=== PATIENT | male | born 1940 | race Caucasian/White ===

== ENCOUNTER 2016-10-11 14:25 | Inpatient (IN) | payer OTHER ==
[~2016-10-11] VITALS: Ht 165.1 cm; Wt 76.6 kg
--- NOTE | 2016-10-11 18:50 | DIAGNOSTIC IMAGING REPORT ---
PROCEDURE: US KIDNEY/RENAL COMPLETE INDICATION: Renal failure. History of prostate carcinoma. TECHNIQUE: Transabdominal scans of the kidneys with calculation of resistive indices. Prevoid and postvoid bladder volumes were obtained. COMPARISON: None. FINDINGS: RIGHT: There is moderate right hydronephrosis and hydroureter to the level of the ureteral vesicle junction. There is mild generalized enlargement right kidney (15.4 x 6.8 cm), although cortical thickness appears normal (1.4 cm). Right renal resistive indices are within normal limits (upper pole 0.72, mid pole 0.70, inferior pole 0.74). LEFT: There is moderate left hydronephrosis and hydroureter to the level of the ureteral vesicle junction. Left kidney is of normal size (11.2 x 5.7 x 3.1 cm) with mild generalized cortical atrophic changes (0.8 cm). BLADDER: There is moderate to marked distention of the urinary bladder (440 ml). There is moderate generalized mucosal thickening of the bladder with focal mucosal thickening of the posterior lower bladder. The patient was unable to void. Prostate is not visualized (suggest prior surgery or atrophic changes). IMPRESSION: 1. Moderate bilateral hydronephrosis and hydroureter to the level of the distal ureters. 2. Moderate to marked distention of the urinary bladder (440 ml) with moderate generalized mucosal thickening, and localized mucosal thickening of the posterior lower bladder. 3. 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 Cystoscopic correlation is recommended. 4. Findings discussed with Dr. Néstor Corral.
--- NOTE | 2016-10-11 21:18 | ED ORDER SUMMARY ---
..... Patient: YARELI OLIVARES OrderSheet [facility] VisitID: [id number] [place] [address] 76y, M Registration Date/Time: 10/11/2016 ORDER SHEET Weight: 74.3 kg (stated) Allergies: No Known Drug Allergy GENERAL ORDERS: CBC w Diff Urgent (15:14 10/11/2016 Nisha Mcdaniels) (Ack 15:16 NHouse ER Tech1) (15:53 NHouse ER Tech1) CMP Urgent (15:14 10/11/2016 Nisha Mcdaniels) (Ack 15:16 NHouse ER Tech1) (15:53 NHouse ER Tech1) UA-Culture if indicated Urgent (15:14 10/11/2016 Nisha Mcdaniels) (Ack 15:16 NHouse ER Tech1) (18:47 EHassan R.N.) PT with INR Urgent (15:14 10/11/2016 Nisha Mcdaniels) (Ack 15:16 NHouse ER Tech1) (15:53 NHouse ER Tech1) Pulse oximeter (15:14 10/11/2016 Nisha Mcdaniels) (16:19 EHassan R.N.) EKG - ER Stat (15:15 10/11/2016 Nisha Mcdaniels) (15:15 LNations ER Tech1) Vitals - Orthostatic (15:15 10/11/2016 Nisha Mcdaniels) (16:43 EHassan R.N.) Bladder Scan (16:53 10/11/2016 Nisha Mcdaniels) (17:08 LNations ER Tech1) US Kidney/Renal Complete (No) Urgent (16:54 10/11/2016 Nisha Mcdaniels) (Ack 17:20 NHouse ER Tech1) (17:43 NHouse ER Tech1) Torres Catheter (placed at 18:30) (18:43 10/11/2016 Nisha Mcdaniels) (18:46 EHassan R.N.) - (consult urology) (18:45 10/11/2016 Nisha Mcdaniels) (Ack 18:57 NHouse ER Tech1) (22:22 NHouse ER Tech1) Rapid Influenza Screen (Nasal Pharyngeal) (mucus) Urgent (19:46 10/11/2016 Nisha Mcdaniels) (Ack 19:55 NHouse ER Tech1) (20:27 HSoule) MEDICATION ORDERS: IV FLUIDS: IV Saline Lock (15:14 10/11/2016 Nisha Mcdaniels) (16:18 SStone R.N.) IV NS : initial bolus 500 mL (1000 mL/hr), then none - for X1 (NOW) (16:13 10/11/2016 Nisha Mcdaniels) (16:17 SStone R.N.) Ceftriaxone IV 1 gm/50mL (NOW) (21:06 10/11/2016 Nisha Mcdaniels) (Ack 21:08 HSoule) (21:18 HSoule) ORDER SHEET NOTES: [Electronically signed by Danielle Patino (00:34 10/12/2016)] [Electronically signed by Néstor Corral Dr. (22:32 10/14/2016)] [Electronically locked/signed by Danielle Patino (00:34 10/12/2016)]
--- NOTE | 2016-10-11 21:18 | ED CLINICAL REPORT ---
Clinical Report - Physicians/Mid Levels [facility] [address] [place] [address] 10/11/2016 14:26 Patient: YARELI OLIVARES Arrived- By private vehicle. Historian- patient. HISTORY OF PRESENT ILLNESS Chief Complaint: fatigue. This started past several days and is still present and worsening. It was gradual in onset and has been waxing/waning but is not gone now. At its maximum, severity described as moderate. When seen in the E.D., severity described as moderate. Modifying factors. Not worsened by anything. Not relieved by anything. No headache, visual disturbance, fatigue, muscle aches or weakness. Denies sleep problem. He has had decreased urine output. (reports patient not being able to urinate for the past few days.). Similar symptoms previously: None. Recent medical care: The patient was seen recently by a health care provider. ( Patient told to go the the emergency department by doctor for abnormal labs. patient does not know what labs were abnormal.). REVIEW OF SYSTEMS No fever, sore throat, sinus drainage, abdominal pain or nausea. No diarrhea or headache. All systems otherwise negative, except as recorded above. PAST HISTORY See nurses notes. Medications: Aspirin 81 mg daily. Atorvastatin 40 mg q.h.s.. Chlorthalidone 25 mg q.am.. Carvedilol 25 mg bid. Amlodipine 10 mg daily. Allergies: No Known Drug Allergy. SOCIAL HISTORY Former smoker. No alcohol use or drug use. No recent travel. Is a local resident. ADDITIONAL NOTES The nursing notes have been reviewed. PHYSICAL EXAM Vital Signs: 10/11/2016 14:41 BP: 166/66. HR: 117. RR: 20. O2 saturation: 100%. Temp: 98.4 F. Pain level now: 0/10. Blood pressure normal. Oxygen saturation normal. Appearance: Alert. No acute distress. Eyes: Pupils equal, round and reactive to light. Eyes normal inspection. ENT: Ears normal. Nose normal. Pharynx normal. Neck: Normal inspection. Neck supple. CVS: Tachycardia. Heart sounds normal. Pulses normal. Rhythm normal. Respiratory: No respiratory distress. Breath sounds normal. Chest nontender. Abdomen: No visible injury. Soft and nontender. Bowel sounds normal. No organomegaly. No mass. Femoral pulses equal. Back: Normal inspection. Skin: Skin warm and dry. Normal skin color. No rash. Normal skin turgor. Extremities: Extremities exhibit normal ROM. No lower extremity edema. Neuro: Oriented X 3. No motor deficit. No sensory deficit. LABS, X-RAYS, AND EKG Laboratory Tests: UA-Culture if indicated: (SHANTANU: 10/11/2016 18:30) ( WagRcvd 10/11/2016 19:06) Final results Test Result Flag Units (Reference) URINE COLOR YELLOW URINE APPEARANCE CLOUDY URINE GLUCOSE NEGATIVE (NEGATIVE) URINE BILIRUBIN NEGATIVE (NEGATIVE) URINE KETONE NEGATIVE (NEGATIVE) URINE SPECIFIC GRAVITY 1.010 (1.010-1.030) URINE PH 6.0 (5.0-8.0) URINE PROTEIN 1+ (NEGATIVE) URINE UROBILINOGEN 0.2 EU/dL (0.2-1.0) URINE NITRITE NEGATIVE (NEGATIVE) URINE BLOOD 2+ (NEGATIVE) URINE LEUK ESTERASE POSITIVE (NEGATIVE) URINE RBC NONE SEEN rbc/hpf (0-1) URINE WBC 75-100 wbc/hpf (0-1) URINE EPITHELIAL CELLS RARE EPI/hpf (0-5) URINE BACTERIA MANY (4+) (NONE SEEN) URINE COMMENT CULTURE INDICATED URINE CULTURES ARE SET-UP BASED ON THE FOLLOWING CRITERIA:POSITIVE NITRITEPOSITIVE LEUKOCYTE ESTERASEGREATER THAN 10 WHITE BLOOD CELLSMODERATE (2+) OR GREATER BACTERIA CBC w Diff: (SHANTANU: 10/11/2016 13:05) ( [facility] 10/11/2016 15:23) Final results Test Result Flag Units (Reference) WHITE BLOOD COUNT 17.5 H K/uL (4.5-11.5) RED BLOOD COUNT 3.11 L M/uL (4.50-5.90) HEMOGLOBIN 8.8 L gm/dL (13.5-17.5) HEMATOCRIT 26.8 L % (41.0-53.0) MEAN CELL VOLUME 86 fL (80-100) MEAN CORPUSCULAR HGB 29 pg (26-34) MEAN CORPUSCULAR HGB CONC 33 g/dL (31-37) RED CELL DISTRIBUTION WIDTH 17.8 H % (11.6-14.8) PLATELET COUNT 484 H K/uL (150-400) NEUTROPHIL % 79.8 H % (50-75) LYMPH % 9.0 L % (25-40) MONO % 9.9 % (3-14) EOSINOPHIL % 1.0 % (0-4) BASOPHIL % 0.3 % (0-2) PT with INR: (SHANTANU: 10/11/2016 13:05) ( WagRcvd 10/11/2016 15:34) Final results Test Result Flag Units (Reference) INR 1.1 (0.8-1.2) Low Intensity Therapy: INR 1.5-2.0 PT range 18.5-23.1Mod.Intensity Therapy: INR 2.0-3.0 PT range 23.1-31.5High Intensity Therapy: INR 2.5-3.5 PT range 27.4-35.5High Intensity Therapy 2: INR 3.0-4.0 PT range 31.5-39.3 CMP: (SHANTANU: 10/11/2016 13:05) ( MsgRcvd 10/11/2016 16:06) Final results Test Result Flag Units (Reference) GLUCOSE 105 mg/dL (70-110) BUN 81 *H mg/dL (7-18) CRITICAL RESULTS CALLEDCalled to ESTEVAN 10/11/16 1605Were 2 patient identifiers used? YWas the result read back? Y CREATININE 4.2 H mg/dL (0.6-1.3) Estimated GFR 14.78 mL/min Estimated GFR- 17.91 mL/min Note: Persistent reduction over 3 months in eGFR<60 mL/min/1.73 m2 defines CKD. Patients with eGFR values>=60 mL/min/1.73 m2 may also have CKD if evidence ofpersistent proteinuria. Additional information may be foundat [email or web address].org. SODIUM 137 mmol/L (136-145) POTASSIUM 5.0 mmol/L (3.5-5.1) CHLORIDE 101 mmol/L (98-107) CARBON DIOXIDE 20 L mmol/L (21-32) CALCIUM 9.5 mg/dL (8.5-10.1) TOTAL PROTEIN 8.2 g/dL (6.4-8.2) ALBUMIN 2.5 L g/dL (3.3-5.0) BILIRUBIN, TOTAL 0.3 mg/dL (0.0-1.0) ALKALINE PHOSPHATASE 200 H U/L (46-116) AST (SGOT) 24 U/L (15-37) ALT (SGPT) 47 U/L (12-78) Rapid Influenza Screen: (SHANTANU: 10/11/2016 20:00) ( MsgRcvd 10/11/2016 20:22) Final results SPECIMEN DESCRIPTION: MUCUS Test Result Flag Units (Reference) RAPID INFLUENZA SCREEN DATE: 10/11/16 INFLUENZA A: NEGATIVE SCREEN FOR INFLUENZA A INFLUENZA B: NEGATIVE SCREEN FOR INFLUENZA B RAPID INFLUENZA NEGATIVE FOR "A" "B". . PROGRESS AND PROCEDURES Course of Care: creatine 3.76 bun 76when normal in december 2015 bun 14 and Cr 1.09 hemoglobin of 8.9 was 13 g. Recent weight loss. Had FloMax that may have caused hypotension. Hx prostate cancer. PSA increasing went from 1 to 18. TSH also 17 but will correct in 's office. bladder scan 397 cc I discussion with [facility]. Unfortunately, they do not have any beds. There is some confusion earlier they had wanted the patient to have a rapid flu test done cause of a potential bed was available however it was a shared bed and did not want to have spread of the flu. Was informed by the transfer service that they have over 100 people in their emergency department and did not have enough beds currently no place all of their own patients. We will currently look for another place to have the patient admitted. discussed case with [facility] who does not have any beds at this time. I discussed case with hospitalist over at [facility]. At this time they do not feel urology consult is warranted. They state patient can match ins and outs with a Landa catheter. And monitor BUN/creatinine. Discussed care with patient and clinical presentation and states that urology will not see patient in house and will have patient follow up in clinic if there are transfer there. Do not feel that benefit patient at this time. Spoke with urology from [facility]. Spoke with Dr. Silverman. Recommended to leave the landa in and follow up at discharge in about 1 - 2 weeks. No further recommendations. Critical care performed (65 minutes). Time is exclusive of separately billable procedures. Time includes: direct patient care, patient reassessment, coordination of patient care, interpretation of data (laboratory data), review of patient's medical records, medical consultation, family consultation regarding treatment decisions and documentation of patient care. Disposition: Admitted to Acute Care. CLINICAL IMPRESSION acute kidney injury obstructive uropathy, acute relieved urinary tract infection. (Electronically signed by Néstor Corral Dr. 10/14/2016 22:32)
--- NOTE | 2016-10-11 21:18 | ED NURSING NOTES ---
Clinical Report - Nurses [facility] [address] [place] [address] 10/11/2016 14:26 Patient: YARELI OLIVARES TRIAGE Triage time 14:44. Acuity: LEVEL 3. Chief Complaint: (Sent by Dr. Shah for elevated labs, BUN 76 and cr. 3.7.). --14:49 Neelam Fortune R.N. 14:41 10/11/16. BP: 166/66. HR: 117. RR: 20. O2 saturation: 100%. Temp: 98.4 F. Pain level now: 0/10. --14:49 Neelam Fortune R.N. Weight: 74.3 kg stated. Height/Length: 65 inches Per Patient. BMI: 27.3. --14:44 Neelam Fortune R.N. Medications Amlodipine 10 mg daily. --14:47 Neelam Fortune R.N. Carvedilol 25 mg bid. --14:47 Neelam Fortune R.N. Chlorthalidone 25 mg q.am.. --14:47 Neelam Fortune R.N. Atorvastatin 40 mg q.h.s.. --14:47 Neelam Fortune R.N. Aspirin 81 mg daily. --14:47 Neelam Fortune R.N. Allergies No Known Drug Allergy. --14:46 Neelam Fortune R.N. History Arrived by private vehicle. Historian: patient and family. Primary physician (CHANDU). ( Pt). ( Dizziness yesterday, weakness and tired). He has had weakness. He has had a cough (pt. states related to medication he takes for his prostate?). 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 PAST MEDICAL HX: Hypertension. Immunizations: (Pneumo- 10/10/2016). ( Prostate CA). SOCIAL HX: Former smoker. No alcohol use or drug use. No infectious disease exposure. --14:49 Neelam Fortune R.N. Interventions ID band on patient. --14:49 Neelam Fortune R.N. NURSING PROGRESS NOTES EKG time: (1502). EKG was ordered, performed by a tech and shown to the ED physician. --15:04 Donnie Viola, ER Tech1 15:26 10/11/16. BP: 152/65. HR: 105. --15:29 Neelam Fortune R.N. ( Pt resting comfortably, awaiting lab results. No needs. Call light in reach.). --15:29 Neelam Fortune R.N. 15:52 10/11/2016 Site #1 started via IV in the right antecubital space with an 20g angiocath; one attempt. Saline lock flushed with 10 mL saline. --16:17 Neelam Fortune R.N. 16:17 10/11/2016 Started bag #1 500 mL IV Fluids IV NS (Saline); at 1000 mL/hr over 30 minute(s) via site #1 --16:17 Neelam Fortune R.N. Cardiac rhythm: sinus tachycardia; (ventricular rate). Reassurance given. Reassessment after fluids administered. He reports no complaints and he is calm and resting quietly. RESPIRATORY: Respiratory distress present. Expiratory bilateral wheezes in the bases. CVS: Denies chest pain. SKIN: Skin is warm and dry. Skin color within normal limits. Patient identifiers checked. Call light placed in reach. Side rails up x 1. Bed placed in lowest position. Brakes of bed on. Brakes of chair on. --16:41 Edith Joshua R.N. 16:35 10/11/16. BP: 137/74 (regular adult cuff) taken on the left arm, via an automated monitor, while lying. HR: 108 (regular). RR: 18. O2 saturation: 98% on room air. Pain level now: 0/10. --16:41 Edith Joshua R.N. 16:39 10/11/16. BP: 118/62 (regular adult cuff) taken on the left arm, via an automated monitor, while sitting. HR: 115. RR: 21. O2 saturation: 99% on room air. Pain level now: 0/10. --16:42 Edith Joshua R.N. Cardiac rhythm: sinus tachycardia. --16:42 Edith Joshua R.N. 16:41 10/11/16. BP: 100/46 (regular adult cuff) taken on the left arm, via an automated monitor, while standing. HR: 109 (regular). RR: 22. O2 saturation: 99%. Temp: 98.8 F (oral). Pain level now: 0/10. --16:43 Edith Joshua R.N. Cardiac rhythm: sinus tachycardia. --16:43 Edith Joshua R.N. 17:03 10/11/16. BP: 100/46. HR: 111. RR: 20. O2 saturation: 98%. --17:05 Neelam Fortune R.N. ( pt. resting quietly. Tech at bedside doing bladder scan.). --17:05 Neelam Fortune R.N. ( bladder scan- 397ml). --17:08 Viola Fields ER Tech1 ( Ultrasound at bedside.). --17:52 Neelam Fortune R.N. Cardiac rhythm: sinus tachycardia. Reassurance given. 14 fr double lumen landa catheter placed. Reason for indwelling catheter: retention. During procedure hand hygiene observed and sterile equipment and aseptic technique used. Return of yellow-colored cloudy urine, sediment noted; attached to bedside drainage bag positioned below the bladder and secured with stabilization device. He tolerated procedure well. Patient ID band checked for patient name, birthdate and medical record number: patient confirmed. Instructions provided to collect clean catch urine and patient verbalized understanding urine collected with return of yellow-colored cloudy urine, sediment noted; sample sent to lab for urinalysis. Specimen labeled in the presence of the patient. The patient is calm and resting quietly. ( Landa placed, UA sent, urine sediment MD aware, possible transfer). RESPIRATORY: No respiratory distress. SKIN: Skin is warm and dry. Skin color within normal limits. --18:46 Edith Joshua R.N. 18:20 10/11/16. BP: 139/63. HR: 107. RR: 28 (regular and labored). O2 saturation: 97% on room air. Temp: 98.8 F. Pain level now: 0/10. Additional comments: HINSON. --18:46 Edith Joshua R.N. 16:50 10/11/2016 IV Fluids IV NS Discontinued: bag #1 infused. Total amount infused: 500 mL. --18:50 Neelam Fortune R.N. Care transferred and report given. ( Report given REHANA Santos. VSS, IV in place.). --19:09 Edith Joshua R.N. 19:20 10/11/16. BP: 130/68. HR: 108. RR: 20. O2 saturation: 97% on room air. Pain level now: 0/10. --19:24 Danielle Patino ( Family informed of plan of care. Patient has no complaints at this time and is resting quietly.). --19:25 Danielle Patino ( Flu swab obtained, labeled and sent to lab). --20:01 Danielle Patino ( Provider at bedside discussing plan of care with patient and family). --20:31 Danielle Patino 20:53 10/11/16. BP: 143/66. HR: 108. O2 saturation: 98% on room air. --20:54 Danielle Patino 21:18 10/11/2016 Started 1 gm of Ceftriaxone IVPB in bag #1 50 mL; at 150 mL/hr over 20 minute(s) via site #1 via IV pump. Allergies verified and confirmed 5 rights. IV patency established. IV site checked: no pain, redness, or swelling. IV flushed thoroughly pre- and post-medication administration. --21:18 Danielle Patino 21:34 10/11/2016 Ceftriaxone IVPB Discontinued: bag #1 completed. Total amount infused: 50 mL. IV patency established. IV site checked: no pain, redness, or swelling. IV flushed thoroughly. --21:34 Ariana Henry R.N. DISPOSITION / DISCHARGE 21:58 10/11/16. BP: 139/70. HR: 111. RR: 20. O2 saturation: 97% on room air. Temp: 98.9 F (oral). Pain level now: 0/10. --21:58 Danielle Patino Condition at departure: stable. --21:58 Danielle Patino Admitted. Bed obtained. --22:01 Danielle Patino 22:28 10/11/2016 Site #[address] upon admission; patent, no pain and no signs of infection or infiltration. Flushed with 10 mL saline; flushes easily. --:28 Danielle Patino Report was given to a nurse via a phone call. Report included patient's care, treatment, medications, reviewed medication reconcilliation, and condition (including any recent changes or anticipated changes). All questions were answered. Report was acknowledged and care was transferred. (Sara KIMBALL). --:28 Danielle Patino Transported via stretcher by nurse. --22:40 Danielle Patino. Locked/Released at 10/12/2016 0:34 by Danielle Patino,
--- NOTE | 2016-10-11 21:18 | ED ORDER SUMMARY ---
..... Patient: YARELI OLIVARES OrderSheet [facility] VisitID: [id number] [place] [address] 76y, M Registration Date/Time: 10/11/2016 ORDER SHEET Weight: 74.3 kg (stated) Allergies: No Known Drug Allergy GENERAL ORDERS: CBC w Diff Urgent (15:14 10/11/2016 Nisha Mcdaniels) (Ack 15:16 NHouse ER Tech1) (15:53 NHouse ER Tech1) CMP Urgent (15:14 10/11/2016 Nisha Mcdaniels) (Ack 15:16 NHouse ER Tech1) (15:53 NHouse ER Tech1) UA-Culture if indicated Urgent (15:14 10/11/2016 Nisha Mcdaniels) (Ack 15:16 NHouse ER Tech1) (18:47 EHassan R.N.) PT with INR Urgent (15:14 10/11/2016 Nisha Mcdaniels) (Ack 15:16 NHouse ER Tech1) (15:53 NHouse ER Tech1) Pulse oximeter (15:14 10/11/2016 Nisha Mcdaniels) (16:19 EHassan R.N.) EKG - ER Stat (15:15 10/11/2016 Nisha Mcdaniels) (15:15 LNations ER Tech1) Vitals - Orthostatic (15:15 10/11/2016 Nisha Mcdaniels) (16:43 EHassan R.N.) Bladder Scan (16:53 10/11/2016 Nisha Mcdaniels) (17:08 LNations ER Tech1) US Kidney/Renal Complete (No) Urgent (16:54 10/11/2016 Nisha Mcdaniels) (Ack 17:20 NHouse ER Tech1) (17:43 NHouse ER Tech1) Torres Catheter (placed at 18:30) (18:43 10/11/2016 Nisha Mcdaniels) (18:46 EHassan R.N.) - (consult urology) (18:45 10/11/2016 Nisha Mcdaniels) (Ack 18:57 NHouse ER Tech1) (22:22 NHouse ER Tech1) Rapid Influenza Screen (Nasal Pharyngeal) (mucus) Urgent (19:46 10/11/2016 Nisha Mcdaniels) (Ack 19:55 NHouse ER Tech1) (20:27 HSoule) MEDICATION ORDERS: IV FLUIDS: IV Saline Lock (15:14 10/11/2016 Nisha Mcdaniels) (16:18 SStone R.N.) IV NS : initial bolus 500 mL (1000 mL/hr), then none - for X1 (NOW) (16:13 10/11/2016 Nisha Mcdaniels) (16:17 SStone R.N.) Ceftriaxone IV 1 gm/50mL (NOW) (21:06 10/11/2016 Nisha Mcdaniels) (Ack 21:08 HSoule) (21:18 HSoule) ORDER SHEET NOTES: [Electronically signed by Danielle Patino (00:34 10/12/2016)] [Electronically signed by Néstor Corral Dr. (22:32 10/14/2016)] [Electronically locked/signed by Danielle Patino (00:34 10/12/2016)]
[2016-10-11 22:55] VITALS: BP 122/85
--- NOTE | 2016-10-12 00:15 | History & Physical Report ---
Admission Admit Date 10/11/16 Information Source Information Source: Self Reliability: Fair History Chief Complaint Sent by [facility] for abnormal labs History of Present Illness 76 y/o male patient with PMH of HTN,HLP, H/O Prostate cancer s/p radiation therapy is sent by PCP for abnormal lab results. As per the patient he was fine until last sunday when he noticed to have low BP, he recalls his SBP was in 80's, for that he did not get any help and stayed home, c/o on and dizziness during that period,then he went to see his PCP Dr. Shah on Sunday he again noted to have low BP so his BP meds were stopped and labs were done. On sunday he was called by his PCP about abnormal lab results who also asked him to go to [facility] ED for admission and furthur evalaution. On eval in [facility] ED he was found to have MONSTER with BUN/Cr of 81/4.2, and sepsis secondary to UTI with positve UA, WBC of 17.8 and tachycardia. Bladder scan showed urinarr retention, foleys palced in ED, patient recieved IV ceftriaxone and IV hydartion. He is admitted to hospital for furthur evaluation and management. Patient History 1. H/O prostate cancer 2. Hyperlipidemia 3. Hypertension 4. Obstructive uropathy Social History Lives in [place] in [facility] H/o smoking in the past, quit in 1980 occasionally drinks alcohol 2-3 beers per year no h/o drug abuse retired worked for [employer], raising [employer] Medications and Allergies Medications Current Medications Sig/Shamika Start time Last Medication Dose Route Stop Time Status Admin Dextrose/Sodium 1,000 ML ASDIRECTED 10/11 2114 AC Chloride IV Morphine Sulfate See Dose Q4H PRN 10/11 2114 AC Insts (1) IV 10/12 1200 Ondansetron HCl 4 MG Q8H PRN 10/11 2114 AC IV Dose Instructions: (1)Morphine Sulfate: 2 - 4 MG HOme meds: Amlodipine: 10 mg po daily Aspirin 81mg po daily Atorvastatin 40mg po daily carvedilol 25mg po bid chlorthalidone 25mg q am Allergies Coded Allergies: NKA (10/11/16) Allergies No Known Drug Allergy. --14:46 Neelam Fortune RMonster. Review of Systems Constitutional Weakness. Denies: Fever, Chills, Sweats, Malaise. Eyes Denies: Conjunctival Inflammation, Eyelid Inflammation, Redness. ENT Denies: Mouth Pain, Mouth Swelling, Throat Pain, Throat Swelling. Respiratory Cough, Dry, SOB w/exertion. Denies: Wheezing. Cardiovascular Denies: Chest Pain, Palpitations, Orthopnea, PND, Edema, Light-headedness. Gastrointestinal Denies: Nausea, Vomiting, Abdominal Pain, Diarrhea, Constipation. Genitourinary Hematuria, Retention. Denies: Dysuria, Frequency, Incontinence. Musculoskeletal Denies: Back Pain. Skin Denies: Rash, Lesions, Jaundice. Neurological Denies: Weakness, Numbness, Incoordination, Change in speech, Confusion, Seizures. Physical Exam Vital Signs / I&Os Vital Signs Date Time Temp Pulse Resp B/P Pulse O2 O2 Flow FiO2 Ox Delivery Rate 10/11 2255 98.6 117 22 122/85 97 Room Air I&O 10/11 0800 10/11 1600 10/12 0000 Intake Total 0 Output Total 0 Balance 0 General Appearance Alert, Oriented X3, No acute distress HEENT Normal exam, Atraumatic, PERRLA, Moist mucous membranes Lungs Clear to auscultation Neck No JVD Cardiovascular Normal exam, Regular rate and rhythm, Normal S1 and S2 Abdomen Normal bowel sounds, Soft, No tenderness, No guarding Extremities No edema Skin No Rashes, No Breakdown, No Significant Lesions Neurological No lateralizing signs LAB Results Laboratory Tests 10/11 10/11 1305 1830 Chemistry Plasma Sodium (136 - 145 mmol/L) 137 Plasma Potassium (3.5 - 5.1 mmol/L) 5.0 Plasma Chloride (98 - 107 mmol/L) 101 CO2 (Enzymatic) (21 - 32 mmol/L) 20 BUN (7 - 18 mg/dL) 81 Creatinine (0.6 - 1.3 mg/dL) 4.2 Est GFR ( Amer) (mL/min) 17.91 Est GFR (Non-Af Amer) (mL/min) 14.78 Glucose (70 - 110 mg/dL) 105 Plasma Calcium (8.5 - 10.1 mg/dL) 9.5 Total Bilirubin (0.0 - 1.0 mg/dL) 0.3 AST (15 - 37 U/L) 24 ALT (12 - 78 U/L) 47 Alkaline Phosphatase (46 - 116 U/L) 200 Total Protein (6.4 - 8.2 g/dL) 8.2 Albumin (3.3 - 5.0 g/dL) 2.5 Coagulation INR (0.8 - 1.2) 1.1 Hematology WBC (4.5 - 11.5 K/uL) 17.5 RBC (4.50 - 5.90 M/uL) 3.11 Hgb (13.5 - 17.5 gm/dL) 8.8 Hct (41.0 - 53.0 %) 26.8 MCV (80 - 100 fL) 86 MCH (26 - 34 pg) 29 RDW (11.6 - 14.8 %) 17.8 Neut % (Auto) (50 - 75 %) 79.8 Lymph % (Auto) (25 - 40 %) 9.0 [place] % (Auto) (3 - 14 %) 9.9 Eos % (Auto) (0 - 4 %) 1.0 Baso % (Auto) (0 - 2 %) 0.3 Plt Count, EDTA (150 - 400 K/uL) 484 PUBS MCHC (31 - 37 g/dL) 33 Urines Urine Color YELLOW Urine Appearance CLOUDY Urine pH (5.0 - 8.0) 6.0 Ur Specific [place] (1.010 - 1.030) 1.010 Urine Protein (NEGATIVE) 1+ Urine Ketones (NEGATIVE) NEGATIVE Urine Blood (NEGATIVE) 2+ Urine Nitrite (NEGATIVE) NEGATIVE Urine Bilirubin (NEGATIVE) NEGATIVE Urine Urobilinogen (0.2 - 1.0 EU/dL) 0.2 Ur Leukocyte Esterase (NEGATIVE) POSITIVE Urine RBC (0 - 1 rbc/hpf) NONE SEEN Urine WBC (0 - 1 wbc/hpf) 75-100 Ur Epithelial Cells (0 - 5 EPI/hpf) RARE Urine Bacteria (NONE SEEN) MANY (4+) Urine Glucose (NEGATIVE) NEGATIVE Urine Comment CULTURE INDICATED Microbiology Date/Time Procedure - Status Source Growth 10/11 1999 Influenza Screen - COMP NASALPHAR 10/11 183 Urine Culture - RECD URINE CC Imaging DATE OF EXAM(S): 10/11/16 PROCEDURE: US KIDNEY/RENAL COMPLETE INDICATION: Renal failure. History of prostate carcinoma. IMPRESSION: 1. Moderate bilateral hydronephrosis and hydroureter to the level of the distal ureters. 2. Moderate to marked distention of the urinary bladder (440 ml) with moderate generalized mucosal thickening, and localized mucosal thickening of the posterior lower bladder. 3. 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 Assessment and Plan Problem List 1. Acute kidney injury Plan Torres palced IV hydration monitor I/o's, daily weight moniotr kidney function and electrolytes 2. Hematuria Plan with no clots hold aspirin monitor H/H type and screen transfuse as needed 3. Obstructive uropathy Plan with high ALk phos levels history of prostate cancer with radition therpay 10 years back, since then in remission, follows with [facility] oncologist check PSA levels 4. Urinary tract infection Plan ua positive possibly from chronic urinary retention start ceftriaxone follow up urine culture, adjust as needed 5. Hypertension Plan BP on higer side with tachycardia will start with low dose coreg 6.25mg BID, adjust as needed 6. Hyperlipidemia Plan c/w statin 7. H/O prostate cancer Plan ossible relapse needs urology and oncolgy follow up check PSA 8. Cough Plan c/o cough for few days with some SOB check Chest x-ray DVT px: SCD'S gi PX: ppi Patient condition: Guarded Anticiapted discharge: 1-2 days E&M Codes Admission: Inpt-High/[id number]
--- NOTE | 2016-10-12 00:28 | NUR ---
pt came up to the floor around 5. No c/o pain, nausea, or SOB. Able to scoot himself over bed on own, but did become somewhat SOB afterwards. F/C is in and urine is very red. Noted umbilical hernia. Stated he lost 26 lbs in last 3 months and he has been having poor appetite for last couple of days. Will cont to monitor
[2016-10-12 02:37] VITALS: BP 128/68
--- NOTE | 2016-10-12 02:58 | NUR ---
pt. is resting in bed at this time. Alert, oriented, cooperative. Assessment compelted. Pt. landa is draining bloody urine with no clots. Per Dr. Wagner, pt. is on telemetry for tachycardia, pt. HR has been in the upper 110's range. Scheduled coreg given. Denies pain at this time. Pt. c/o continuing weakness. States he is independent at home. Call light within reach. TM.
[2016-10-12] MEDS ORDERED: ASPIRIN ADULT L81 MG PO (04:18)
[2016-10-12] MEDS ORDERED: LIPITOR40 MG PO (04:18)
[2016-10-12] MEDS ORDERED: AMLODIPINE BESY10 MG PO (04:18)
[2016-10-12] MEDS ORDERED: CHLORTHALIDONE25 MG PO (04:19)
[2016-10-12] MEDS ORDERED: CARVEDILOL25 MG PO (04:19)
--- NOTE | 2016-10-12 05:54 | DIAGNOSTIC IMAGING REPORT ---
PROCEDURE: XR CHEST 1 VIEW INDICATION: Tachypnea and cough TECHNIQUE: Portable AP view (). COMPARISON: None. FINDINGS: Allowing for overlying wires and electrodes, there is soft tissue and air density at the right medial lung base. Lungs are otherwise clear. Heart and mediastinum are normal. Thorax is normal. IMPRESSION: 1. There is soft tissue density at the right medial lung base which may represent a fat pad or diaphragmatic hernia, although underlying pneumonia might also be considered. Repeat chest x-ray with PA and lateral views may be of assistance in clarifying. 2. Otherwise negative chest.
[2016-10-12 07:09] VITALS: BP 119/71
--- NOTE | 2016-10-12 07:28 | NUR ---
PT TRANSPORTED TO AT 0727 VIA .
--- NOTE | 2016-10-12 08:19 | DIAGNOSTIC IMAGING REPORT ---
PROCEDURE: XR CHEST 2 VIEW INDICATION: Cough. Possible pneumonia. TECHNIQUE: PA and lateral views. COMPARISON: Compared to PA chest earlier in the day (10/12/1969). FINDINGS: Soft tissue density at the right cardiophrenic angle most compatible with fat pad. There are mild bilateral parenchymal changes in the lungs which may be acute or chronic. In addition, there is a soft tissue density overlying the mid thoracic spine on the lateral view. Heart and mediastinum are normal. Thorax is normal. IMPRESSION: 1. Density at the right cardiophrenic angle most consistent with fat pad. 2. Mild bilateral parenchymal changes in the lungs may represent chronic scarring or acute pneumonia (e.g. viral, Mycoplasma). 3. Findings suggest a soft tissue density overlying the mid thoracic spine (lateral view). While this may be due to tortuous aorta, underlying soft tissue mass or focal pneumonia should be considered. CT thorax is recommended to further evaluate.
[2016-10-12 11:26] VITALS: BP 121/70
--- NOTE | 2016-10-12 14:08 | Progress Note ---
Subjective General Note Date: October 12, 2016 Admission Date: October 11, 2016 Hospital Day: 2 PCP: Gurpreet Shah M.D. Status: Inpatient Advanced Directive: FULL CODE Room: 202 Brief History: The patient is a 76-year-old white male with a significant past medical history of prostate CA, hypertension, hyperlipidemia, who presented to [facility] emergency department secondary to complaints of abnormal renal function studies. [facility] ER evaluation was consistent with obstructive uropathy possibly secondary to prostate CA, and UTI. Secondary to the above, the patient was admitted by Dr. Wagner for further evaluation and treatment For other history present illness, past medical history, family history, social history, review of systems, and admission physical examination please see the patient's history and physical examination and ER visit note in the patient's medical record. Subjective: The patient states he is doing well today. No specific complaints. Patient requests: None Medications and Allergies Medications Current Medications Sig/Shamika Start time Last Medication Dose Route Stop Time Status Admin Pantoprazole Sodium 40 MG 0600 10/13 0600 AC Sesquihydrate PO Atorvastatin Calcium 40 MG QPM 10/12 1800 AC PO Sodium Bicarbonate 50 MEQ Q7H 10/12 1000 AC 10/12 Dextrose/Sodium 1,000 ML IV 1016 Chloride Ceftriaxone Sodium/ 50 ML DAILY 10/12 0900 AC 10/12 Dextrose IV 0809 Carvedilol 6.25 MG BIDWC 10/12 0200 AC 10/12 PO 0809 Docusate Sodium 250 MG BID PRN 10/12 0200 AC PO Acetaminophen 650 MG Q6H PRN 10/12 0130 AC PO Ondansetron HCl 4 MG Q6H PRN 10/12 0130 AC IV Zolpidem Tartrate 5 MG QHS PRN 10/12 0130 AC PO Allergies Coded Allergies: NKA (10/11/16) Allergies No Known Drug Allergy. --14:46 Neelam Fortune R.N. Physical Exam Vital Signs / I&Os Vital Signs Date Time Temp Pulse Resp B/P Pulse O2 O2 Flow FiO2 Ox Delivery Rate 10/12 1126 98.2 100 18 121/70 99 Room Air 10/12 0809 102 10/12 0808 Room Air 10/12 0709 98.8 102 20 119/71 99 Room Air 10/12 0255 117 10/12 0237 98.6 102 18 128/68 96 Room Air 10/11 2255 98.6 117 22 122/85 97 Room Air I&O 10/12 0000 10/11 1600 10/11 0800 Intake Total 0 Output Total 0 Balance 0 General Appearance Alert, Oriented X3, Cooperative, No acute distress Lungs Clear to auscultation Cardiovascular Regular rate and rhythm, Normal S1 and S2 Abdomen Normal bowel sounds, Soft, No tenderness Extremities No cyanosis, No clubbing, No edema Neurological Grossly normal Psych/Mental Status Mental status normal, Mood normal LAB Results Laboratory Tests 10/12 10/12 10/11 0620 0620 1830 Chemistry Plasma Sodium (136 - 145 mmol/L) 139 Plasma Potassium (3.5 - 5.1 mmol/L) 5.3 Plasma Chloride (98 - 107 mmol/L) 106 CO2 (Enzymatic) (21 - 32 mmol/L) 19 BUN (7 - 18 mg/dL) 72 Creatinine (0.6 - 1.3 mg/dL) 3.4 Est GFR ( Amer) (mL/min) 22.86 Est GFR (Non-Af Amer) (mL/min) 18.86 Glucose (70 - 110 mg/dL) 117 Plasma Calcium (8.5 - 10.1 mg/dL) 9.3 Plasma Magnesium (1.8 - 2.4 mg/dL) 1.4 PSA Screen (0 - 4.00 ng/mL) 20.27 Hematology WBC (4.5 - 11.5 K/uL) 21.6 RBC (4.50 - 5.90 M/uL) 3.40 Hgb (13.5 - 17.5 gm/dL) 9.6 Hct (41.0 - 53.0 %) 29.5 MCV (80 - 100 fL) 87 MCH (26 - 34 pg) 28 RDW (11.6 - 14.8 %) 17.8 Neut % (Auto) (50 - 75 %) 75 Lymph % (Auto) (25 - 40 %) 17 [place] % (Auto) (3 - 14 %) 0 Eos % (Auto) (0 - 4 %) 0 Baso % (Auto) (0 - 2 %) 0 Band Neutrophils % (0 - 8 %) 0 Metamyelocytes % (0 - 1 %) 8 Myelocytes (0 - 1 %) 0 Other Cell Type 0 Plt Count, EDTA (150 - 400 K/uL) 537 Polychromasia OCC Poikilocytosis (manual 1+ Anisocytosis (manual) 1+ PUBS MCHC (31 - 37 g/dL) 33 Urines Urine Color YELLOW Urine Appearance CLOUDY Urine pH (5.0 - 8.0) 6.0 Ur Specific [place] (1.010 - 1.030) 1.010 Urine Protein (NEGATIVE) 1+ Urine Ketones (NEGATIVE) NEGATIVE Urine Blood (NEGATIVE) 2+ Urine Nitrite (NEGATIVE) NEGATIVE Urine Bilirubin (NEGATIVE) NEGATIVE Urine Urobilinogen (0.2 - 1.0 EU/dL) 0.2 Ur Leukocyte Esterase (NEGATIVE) POSITIVE Urine RBC (0 - 1 rbc/hpf) NONE SEEN Urine WBC (0 - 1 wbc/hpf) 75-100 Ur Epithelial Cells (0 - 5 EPI/hpf) RARE Urine Bacteria (NONE SEEN) MANY (4+) Urine Glucose (NEGATIVE) NEGATIVE Urine Comment CULTURE INDICATED Microbiology Date/Time Procedure - Status Source Growth 10/11 1999 Influenza Screen - COMP NASALPHAR 10/11 1830 Urine Culture - RES URINE CC Assessment and Plan Problem List 1. Obstructive uropathy Plan -Patient presents with findings of bilateral hydronephrosis suggestive of obstructive uropathy -Urinary retention -Torres catheter placed -Monitor urinary output, renal function -Outpatient follow-up with urology 2. Urinary tract infection Plan -Findings consistent with UTI -Urine C&S pending -Rocephin -Monitor 3. Hypertension Plan -Blood pressure well controlled -BP 121/70 mmHg -Low-salt diet -Monitor 4. H/O prostate cancer Plan -Patient with history of prostate CA -Findings consistent with urinary obstruction -PSA significantly elevated -Outpatient follow-up with urology Current status: Fair, stable Anticipated discharge date: Anticipated discharge in 1-2 days Anticipated discharge placement: Home Patient care time: Time spent in chart review, patient interview, physical exam, CPOE, and care documentation: 25 minutes Visit to patient today: 1 Complexity of care: Moderate E&M Codes Rounding: Inpt-Moderate/[id number]
--- NOTE | 2016-10-12 14:13 | NUR ---
NUTRITION ASSESSMENT: S: Pt admitted with dx/o acute kidney injury, hematuria, UTI. PMH includes prostate ca, hyperlipidemia, HTN, obstructive uropathy. Visited with pt today, present, good appetite so far. Pt reports 26 pound wt loss in 3 months, per pts , "just doesnt eat as much as he used to" but does eat ok. O: Diet rx: Low sodium NKFA Wts: 74.2 kg Ht: 65" IBW: 55-69 kg BMI: 27.2 119% Est Kcals: ~6048-6019 kcals per day Est pro: ~70-80 g per day Est fluids: ~2100 mls per day Meds Incl: lipitor, carvedilol, protonix, see eMar for complete list/details. Labs Incl: (10/12) glucose 117, BUN 72, Creat 3.4, K+ 5.3, mag 1.4, Ca+ 9.3, HCT 29.5, HGB 9.6, MCV 86, MCH 29 (10/11) BUN 81, Creat 4.2 Skin: Suleiman Score 16; waffle overlay in place. No open areas noted or reported. A: Pt able to make food preferences known. No chew or swallow problems noted or reported. Suggested pt have Ensure or Boost (or equivalent product at home to supplement diet). Rev'd med and labs. Good to see renal labs improving. RD to follow up and avail for further consult if desired. P: 1. BOOST shake if po less than 50%
[2016-10-12 14:18] VITALS: BP 117/65
[2016-10-12 18:12] VITALS: BP 114/58
--- NOTE | 2016-10-12 18:53 | NUR ---
I discuused with the patient there current medications, possible side effects and answered questions.
[2016-10-12 22:24] VITALS: BP 112/58
[2016-10-13 02:03] VITALS: BP 116/66
--- NOTE | 2016-10-13 02:31 | NUR ---
Report received from Sara RN Patient sleeping at beginning of shift, awoke easily for assessment. Denies pain, sob, nausea at this time. Torres output remains in puentes color. Monitoring output. Call light within reach. wctm.
--- NOTE | 2016-10-13 06:28 | NUR ---
PT C/O LOWER BACK PAIN 10/17. PT IS HARD OF HEARING. SLEPT THROUGHOUT THE NIGHT, NO SOB, NAUSEA.
[2016-10-13 06:31] VITALS: BP 121/54
--- NOTE | 2016-10-13 08:12 | Progress Note ---
Subjective General Note Date: October 13, 2016 Admission Date: October 11, 2016 Hospital Day: 3 PCP: Gurpreet Shah M.D. Status: Inpatient Advanced Directive: FULL CODE Room: 202 Brief History: The patient is a 76-year-old white male with a significant past medical history of prostate CA, hypertension, hyperlipidemia, who presented to [facility] emergency department secondary to complaints of abnormal renal function studies. [facility] ER evaluation was consistent with obstructive uropathy possibly secondary to prostate CA, and UTI. Secondary to the above, the patient was admitted by Dr. Wagner for further evaluation and treatment For other history present illness, past medical history, family history, social history, review of systems, and admission physical examination please see the patient's history and physical examination and ER visit note in the patient's medical record. Subjective: The patient states he is doing well at this time. No complaints. No fever or chills Patient requests: None Medications and Allergies Medications Current Medications Sig/Shamika Start time Last Medication Dose Route Stop Time Status Admin Pantoprazole Sodium 40 MG 0600 10/13 0600 AC 10/13 Sesquihydrate PO 0608 Magnesium Chloride 535 MG TID 10/12 2200 AC 10/13 PO 0608 Atorvastatin Calcium 40 MG QPM 10/12 1800 AC 10/12 PO 1736 Sodium Bicarbonate 50 MEQ Q7H 10/12 1000 AC 10/13 Dextrose/Sodium 1,000 ML IV 0733 Chloride Ceftriaxone Sodium/ 50 ML DAILY 10/12 0900 AC 10/12 Dextrose IV 0809 Carvedilol 6.25 MG BIDWC 10/12 0200 AC 10/12 PO 1736 Docusate Sodium 250 MG BID PRN 10/12 0200 AC PO Acetaminophen 650 MG Q6H PRN 10/12 0130 AC PO Ondansetron HCl 4 MG Q6H PRN 10/12 0130 AC IV Zolpidem Tartrate 5 MG QHS PRN 10/12 0130 AC PO Allergies Coded Allergies: NKA (10/11/16) Allergies No Known Drug Allergy. --14:46 Neelam Fortune R.N. Physical Exam Vital Signs / I&Os Vital Signs Date Time Temp Pulse Resp B/P Pulse O2 O2 Flow FiO2 Ox Delivery Rate 10/13 06 98.2 89 16 121/54 97 Room Air 10/13 020 98.1 89 16 116/66 98 Room Air 10/12 2330 Room Air 10/12 2224 98.1 87 16 112/58 97 Room Air 10/12 1812 98.1 96 18 114/58 98 Room Air 10/12 1736 93 10/12 1550 Room Air 10/12 1418 98.1 99 18 117/65 99 Room Air 10/12 1126 98.2 100 18 121/70 99 Room Air 10/12 0809 102 10/12 0808 Room Air I&O 10/13 0000 10/12 1600 10/12 0800 Intake Total 969 1727 450 Output Total 2221 449 2634 Balance -31 977 -1350 General Appearance Alert (next field), Oriented X3, Cooperative, No acute distress Lungs Normal exam, Clear to auscultation Cardiovascular Regular rate and rhythm, Normal S1 and S2 Abdomen Normal bowel sounds, Soft, No tenderness, No guarding Extremities No cyanosis, No clubbing Neurological Cranial nerves intact, No lateralizing signs Psych/Mental Status Mental status normal, Mood normal LAB Results Laboratory Tests 10/13 10/12 0600 1840 Chemistry Plasma Sodium (136 - 145 mmol/L) 137 137 Plasma Potassium (3.5 - 5.1 mmol/L) 4.2 4.1 Plasma Chloride (98 - 107 mmol/L) 102 103 CO2 (Enzymatic) (21 - 32 mmol/L) 28 21 BUN (7 - 18 mg/dL) 59 65 Creatinine (0.6 - 1.3 mg/dL) 2.6 3.0 Est GFR ( Amer) (mL/min) 31.15 26.41 Est GFR (Non-Af Amer) (mL/min) 25.70 21.79 Glucose (70 - 110 mg/dL) 134 158 Plasma Calcium (8.5 - 10.1 mg/dL) 8.4 8.8 Hematology WBC (4.5 - 11.5 K/uL) 19.9 RBC (4.50 - 5.90 M/uL) 3.03 Hgb (13.5 - 17.5 gm/dL) 8.6 Hct (41.0 - 53.0 %) 26.1 MCV (80 - 100 fL) 86 MCH (26 - 34 pg) 29 RDW (11.6 - 14.8 %) 17.4 Neut % (Auto) (50 - 75 %) Pending Lymph % (Auto) (25 - 40 %) Pending [place] % (Auto) (3 - 14 %) Pending Band Neutrophils % (0 - 8 %) Pending Plt Count, EDTA (150 - 400 K/uL) 486 PUBS MCHC (31 - 37 g/dL) 33 Assessment and Plan Problem List 1. Obstructive uropathy Plan -Status improved -Continue Torres catheter -BUN/creatinine improving -Outpatient follow up with urology -Hyperkalemia/metabolic acidosis resolved -DC bicarbonate 2. Urinary tract infection Plan -Urine C&S shows gram-positive cocci -Probable enterococcus cannot rule out staph aureus -Switched to vancomycin -Monitor 3. Hypertension Plan -Blood pressure well controlled -Blood pressure this a.m. 113/44 mmHg -Monitor -Low-salt diet 4. Hyperlipidemia Plan -No further evaluation -Continue Lipitor 40 mg by mouth daily 5. H/O prostate cancer Plan -Outpatient follow-up -Stable 6. Anemia Status Acute Onset Date Unknown Plan -Patient with mild anemia -H&H 8.6/26.1 -Check iron studies, B12, folate level -Monitor 7. Pulmonary infiltrate Status Acute Onset Date 10/12/16 Plan -Patient with infiltrate/abnormality on chest x-ray -CT scan represents chronic changes versus atypical pneumonia -No evidence of pulmonary mass Current status: Fair, improved Anticipated discharge date: Anticipated discharge in 1-2 days Anticipated discharge placement: Home Patient care time: Time spent in chart review, patient interview, physical exam, CPOE, and care documentation: 25 minutes Visit to patient today: 1 Complexity of care: Moderate E&M Codes Rounding: Inpt-Moderate/[id number]
[2016-10-13 09:38] VITALS: BP 113/44
--- NOTE | 2016-10-13 09:49 | DIAGNOSTIC IMAGING REPORT ---
PROCEDURE: CT THORAX WITHOUT CONTRAST INDICATION: Lung mass/infiltrate TECHNIQUE: Noncontrast axial images were obtained of the chest with coronal and sagittal reformations. COMPARISON: Chest x-ray 10/12/2016 FINDINGS: Mild bilateral upper and lower lobe patchy and interstitial infiltrates. No adenopathy or effusion. Focal atherosclerosis of the aortic arch corresponding to the density seen on the chest x-ray lateral view. No aneurysm. Extensive coronary calcific atherosclerosis. Normal heart size. Bilateral pericardial fat pads. Stable moderate bilateral ureterohydronephrosis. Mild degenerative changes of the spine. IMPRESSION: 1. Mild bilateral patchy and interstitial infiltrate suggestive of atypical pneumonia (viral, Mycoplasma) versus chronic changes 2. No evidence of a pulmonary mass 3. Results discussed with Dr. Akhtar
--- NOTE | 2016-10-13 12:28 | NUR ---
NUTRITON FOLLOW UP NOTE: Pt eating ~ 50-100% of meals, per MD pt states "feels better" today. Likely d/c tomorrow. Noted pt wt down since yesterday 74.2 kg to 64.0 kg. Alerted nursing, will re-weight pt today 2/[address] to follow up and monitor nutrition indices prn/protocol.
--- NOTE | 2016-10-13 14:21 | NUR ---
PATIENT STABLE THIS SHIFT. CT SCAN NEGATIVE FOR LUNG MASS. MD INDICATED PATIENT DISCHARGE IN AM IF CONDITION CONTINUES TO IMPROVE.
[2016-10-13 14:26] VITALS: BP 135/62
--- NOTE | 2016-10-13 18:28 | NUR ---
PT IS A&OX3, LS CTA AND BT ACTIVE. PEDAL PULSES PRESENT. NO C/O PAIN OR NAUSEA. PT GOT UP TO BEDSIDE, WEAK AND DIZZY BUT NO SOB. WILL TRY TO GO FOR A WALK LATER AFTER PT VISITS W/ FAMILY. TELE IS NSR IN THE LOW 90'S. PACHECO DRAINING LIGHT RED COLOR OF URINE, SMALL AMOUNT OF SEDIMENT INCLUDED. RESTING W/ CALL LIGHT IN REACH.
--- NOTE | 2016-10-13 19:24 | NUR ---
Pharmacy tp Dose Vamcomycin DX-UTI/MONSTER Labs- Scr 2.6 CrCl 24 ml/min Afebrile WBC 19.9 Cx GPC with sens to follow Other Abx- CTX 1 gm IV DAILY A/P: Will give vancomycin 1000 mg IV x 1 now then will dose per levels in the setting of MONSTER. Random vancomycin level ordered for AM labs on 10/14/15. Pharmacy will cont to follow.
[2016-10-13 19:27] VITALS: BP 123/59
[2016-10-13 22:21] VITALS: BP 129/60
[2016-10-14 02:41] VITALS: BP 118/61
--- NOTE | 2016-10-14 06:12 | NUR ---
pt able to sleep throughout the night. No c/o pain, nausea, or SOB. Urine appears more pink then red compared to previous day. Lungs clear and donavon RA. Will cont to monitor.
[2016-10-14 07:08] VITALS: BP 115/56
--- NOTE | 2016-10-14 07:21 | NUR ---
Pharmacy To Dose Vancomycin Dx-UTI/MONSTER Labs- Scr 2.0 CrCl 27 ml/min WBC 19.6 Cx GPC with sens pending Afebrile Other Abx- CTX 2 GM IV daily Vanco Random Levels- 14 mcg/ml @0500 on 10/14/15 A/P: Vanco level of 14 mcg/ml is within goal range. Will cont to dose per levels in setting of MONSTER. Vancomycin 1500 mg IV x1 to be given now. Will recheck random level with AM labs on 10/15/15. Pharmacy will cont to follow.
--- NOTE | 2016-10-14 07:26 | NUR ---
MD NOTIFIED OF ABNORMAL POTASSIUM, HTC., AND HMG.
[2016-10-14 10:35] VITALS: BP 114/57
[2016-10-14 14:30] VITALS: BP 125/52
--- NOTE | 2016-10-14 14:38 | NUR ---
PATIENT STABLE AND NO COMPLAINTS OF PAIN THIS SHIFT. NO CHANGES IN CONDITION. FAMILY AT [facility].
--- NOTE | 2016-10-14 15:50 | Progress Note ---
Subjective General Pt. is feeling better. He has not been walking much. He was admitted with bladder outflow obstruction and ? UTI. He has Hx of prostate Ca being followed by Dr. Johnson. Constitutional Weakness. Denies: Fever, Chills, Sweats. Eyes Denies: Vision Change. Respiratory SOB w/exertion (mild SOB ). Cardiovascular Light-headedness. Denies: Chest Pain, Palpitations, Edema. Gastrointestinal Denies: Nausea, Vomiting, Abdominal Pain, Diarrhea, Constipation. Physical Exam Vital Signs / I&Os Vital Signs Date Time Temp Pulse Resp B/P Pulse O2 O2 Flow FiO2 Ox Delivery Rate 10/14 1430 98.4 90 20 125/52 97 Room Air 10/14 1035 98.1 99 20 114/57 98 Room Air 10/14 0921 96 10/14 0708 98.4 93 20 115/56 95 Room Air 10/14 0241 98.2 87 20 118/61 97 Room Air 10/14 0000 Room Air 10/13 2221 98.1 88 20 129/60 95 Room Air 10/13 1927 98.1 90 20 123/59 97 Room Air 10/13 1819 Room Air 10/13 1707 88 I&O 10/13 0800 10/13 1600 10/14 0000 Intake Total 1315 1680 450 Output Total 800 1675 1500 Balance 515 5 -1050 General Appearance Alert, Oriented X3, Cooperative, No acute distress HEENT Normal exam Lungs Clear to auscultation, somewhat decreased BS. Cardiovascular Regular rate and rhythm, Normal S1 and S2, No murmurs, gallops, rubs Abdomen Soft, No tenderness, No guarding Extremities No cyanosis, No edema Skin No Rashes, No Breakdown Neurological Normal tone, Sensation intact Psych/Mental Status Mental status normal, Mood normal Assessment and Plan Problem List 1. Obstructive uropathy Plan Kidney function improving. Keep in /landa Cath until tomorrow am. Consider DCing cath. tomorrow. Recheck lab in am. 2. Urinary tract infection Plan Culture nl. debi. Will DC vancomycin. Continue ceftriaxone. CBC still elevated. Recheck in am. 3. Hypertension Plan BP OK with current meds. Replace K+. 4. Anemia Status Acute Onset Date Unknown Plan Hct. 23-24. Will check stool guaiac. E&M Codes Rounding: Inpt-Moderate/[id number]
[2016-10-14 18:40] VITALS: BP 130/64
--- NOTE | 2016-10-14 22:32 | ED DISCHARGE INSTRUCTIONS ---
Patient: YARELI OLIVARES General Instructions [facility] VisitID: [id number] [address] [place] [address] 76y, M Registration Date/Time: 10/11/2016 acute kidney injury obstructive uropathy, acute relieved urinary tract infection. (Electronically signed by Néstor Corral Dr. 10/14/2016 22:32)
--- NOTE | 2016-10-14 22:32 | ED DISCHARGE INSTRUCTIONS ---
Patient: YARELI OLIVARES General Instructions [facility] VisitID: [id number] [address] [place] [address] 76y, M Registration Date/Time: 10/11/2016 acute kidney injury obstructive uropathy, acute relieved urinary tract infection. (Electronically signed by Néstor Corral Dr. 10/14/2016 22:32)
--- NOTE | 2016-10-14 22:33 | ED MAR SUMMARY ---
..... Medication Administration Record [facility] [address] [place] [address] Patient: YARELI OLIVARES Visit ID: [id number] 76y, M Weight: 74.3 kg Height/Length: 65 in BMI: 27.3 ALLERGIES: No Known Drug Allergy Start 16:17 10/11/2016 Neelam Fortune RMonster., Stop 16:50 10/11/2016 Neelam Fortune R.N. Medication Administered: IV NS (SALINE), Dose: IV Fluids over 30 minute(s), Rate: 1000 mL/hr, Dispensed: 500 mL bag, Site: #1 right AC. Medication Ordered: IV NS : initial bolus 500 mL (1000 mL/hr), then none - for X1 (NOW). Start 21:18 10/11/2016 Danielle Patino,, Stop 21:34 10/11/2016 Ariana Henry RSaadN. Medication Administered: CEFTRIAXONE [IVPB], Dose: 1 gm IVPB over 20 minute(s), Rate: 150 mL/hr, Dispensed: 50 mL bag, Site: #1 right AC. Medication Ordered: Ceftriaxone IV 1 gm/50mL (NOW).
--- NOTE | 2016-10-14 22:33 | ED MAR SUMMARY ---
..... Medication Administration Record [facility] [address] [place] [address] Patient: YARELI OLIVARES Visit ID: [id number] 76y, M Weight: 74.3 kg Height/Length: 65 in BMI: 27.3 ALLERGIES: No Known Drug Allergy Start 16:17 10/11/2016 Neelam Fortune RMonster., Stop 16:50 10/11/2016 Neelam Fortune R.N. Medication Administered: IV NS (SALINE), Dose: IV Fluids over 30 minute(s), Rate: 1000 mL/hr, Dispensed: 500 mL bag, Site: #1 right AC. Medication Ordered: IV NS : initial bolus 500 mL (1000 mL/hr), then none - for X1 (NOW). Start 21:18 10/11/2016 Danielle Patino,, Stop 21:34 10/11/2016 Ariana Henry RSaadN. Medication Administered: CEFTRIAXONE [IVPB], Dose: 1 gm IVPB over 20 minute(s), Rate: 150 mL/hr, Dispensed: 50 mL bag, Site: #1 right AC. Medication Ordered: Ceftriaxone IV 1 gm/50mL (NOW).
--- NOTE | 2016-10-14 22:33 | ED MED RECONCILIATION SUMMARY ---
Patient: YARELI OLIVARES Medication Reconciliation Report [facility] VisitID: [id number] [address] [place] [address] 76y, M Registration Date/Time: 10/11/2016 Weight: 74.3 kg Height/Length: 65 in. BMI: 27.3 ALLERGIES: No Known Drug Allergy The patient's Home Medications are listed below: THE FOLLOWING MEDICATIONS NEED TO BE RECONCILED: Amlodipine 10 mg daily Aspirin 81 mg daily Atorvastatin 40 mg q.h.s. Carvedilol 25 mg bid Chlorthalidone 25 mg q.am. The source(s) of the original Home Medication information: Not obtained. The following Medications were given to the patient in the Emergency Department: IV NS IV Fluids bolus 0, then 1000 mL/hr, administered: 10/11/2016 4:17:00 PM Ceftriaxone [IVPB] IVPB bolus 0, then 1 gm 150 mL/hr, administered: 10/11/2016 9:18:00 PM The following Medications were prescribed to the patient: None.
--- NOTE | 2016-10-14 22:33 | ED MED RECONCILIATION SUMMARY ---
Patient: YARELI OLIVARES Medication Reconciliation Report [facility] VisitID: [id number] [address] [place] [address] 76y, M Registration Date/Time: 10/11/2016 Weight: 74.3 kg Height/Length: 65 in. BMI: 27.3 ALLERGIES: No Known Drug Allergy The patient's Home Medications are listed below: THE FOLLOWING MEDICATIONS NEED TO BE RECONCILED: Amlodipine 10 mg daily Aspirin 81 mg daily Atorvastatin 40 mg q.h.s. Carvedilol 25 mg bid Chlorthalidone 25 mg q.am. The source(s) of the original Home Medication information: Not obtained. The following Medications were given to the patient in the Emergency Department: IV NS IV Fluids bolus 0, then 1000 mL/hr, administered: 10/11/2016 4:17:00 PM Ceftriaxone [IVPB] IVPB bolus 0, then 1 gm 150 mL/hr, administered: 10/11/2016 9:18:00 PM The following Medications were prescribed to the patient: None.
[2016-10-14 23:00] VITALS: BP 149/77
--- NOTE | 2016-10-14 23:32 | NUR ---
END SHIFT: PT STABLE THROUGHOUT SHIFT, TOLERATING ACTIVITY AND DIET, NO COMPLAINTS OF PAIN/NAUSEA, OBTAINED GUIAC X2 THIS SHIFT, PT HAS HAD SOFT, FORMED BOWEL MOVEMENTS TODAY. PT ABLE TO REST, VSS, AFEBRILE, KIDNEY FUNCTION CONTINUES TO TREND DOWNWARD TODAY.
[2016-10-15 03:01] VITALS: BP 117/67
--- NOTE | 2016-10-15 03:18 | NUR ---
Pt assessed when VS taken. No complaint. Lg UOP via landa. Tele shows NSR. Plan is labs in am.
[2016-10-15 06:43] VITALS: BP 115/69
--- NOTE | 2016-10-15 09:30 | NUR ---
RECEIVED PT IN BED, ON HIGH FOLWER'S POSITION, AWAKE, ALERT, ORIENTED, COHERENT, COOPERATIVE. V/S TAKEN AND RECORED. ASSESSMENT DONE. H/H IS 7.4/22.2. PT AMBULATE 2 LOOPS EARLIER. DENIES SOB, CHEST PAIN, DIZZINESS AND LIGHTHEADEDNESS AT THIS TIME. DUE MEDS GIVEN. INSTRUC PT TO CONTINUE AMBULATING IN THE HALLS. DUE MEDS GIVEN. NEEDS ATTENDED.
[2016-10-15 10:11] VITALS: BP 112/50
--- NOTE | 2016-10-15 10:55 | Progress Note ---
Subjective General Brief History: The patient is a 76-year-old white male with a significant past medical history of prostate CA, hypertension, hyperlipidemia, who presented to [facility] emergency department secondary to complaints of abnormal renal function studies. [facility] ER evaluation was consistent with obstructive uropathy possibly secondary to prostate CA, and UTI. Patient is feeling well at this time. Has continued issues of some weakness and elevated WBC. Had UA that was "skin debi" Is on ceftriaxone and feels he is improving. No acute issues of CP, sob, abdomnial pain. Feels that he would benefit from another day with his weakness. Physical Exam Vital Signs / I&Os Vital Signs Date Time Temp Pulse Resp B/P Pulse O2 O2 Flow FiO2 Ox Delivery Rate 10/15 1011 99.0 89 18 112/50 97 Room Air 10/15 0935 Room Air 10/15 0933 94 10/15 0643 98.8 96 18 115/69 98 Room Air 10/15 0301 99.0 93 16 117/67 96 Room Air 10/14 2300 98.4 87 16 149/77 99 Room Air 10/14 1840 98.1 95 16 130/64 98 Room Air 10/14 1832 Room Air 10/14 1714 94 10/14 1430 98.4 90 20 125/52 97 Room Air I&O 10/15 0000 10/14 1600 10/14 0800 Intake Total 1387 1649 1559 Output Total 1450 1350 1450 Balance -63 299 109 General Appearance Alert HEENT Normal exam Lungs Clear to auscultation, Normal air movement Cardiovascular Regular rate and rhythm, Normal S1 and S2 Abdomen Soft, No tenderness Extremities No edema LAB Results Laboratory Tests 10/15 10/14 10/14 3119 3435 1915 Chemistry Plasma Sodium (136 - 145 mmol/L) 141 Plasma Potassium (3.5 - 5.1 mmol/L) 3.6 Plasma Chloride (98 - 107 mmol/L) 107 CO2 (Enzymatic) (21 - 32 mmol/L) 29 BUN (7 - 18 mg/dL) 24 Creatinine (0.6 - 1.3 mg/dL) 1.7 Est GFR ( Amer) (mL/min) 50.87 Est GFR (Non-Af Amer) (mL/min) 41.97 Glucose (70 - 110 mg/dL) 118 Plasma Calcium (8.5 - 10.1 mg/dL) 8.0 Plasma Magnesium (1.8 - 2.4 mg/dL) 1.6 Hematology WBC (4.5 - 11.5 K/uL) 17.3 RBC (4.50 - 5.90 M/uL) 2.62 Hgb (13.5 - 17.5 gm/dL) 7.4 Hct (41.0 - 53.0 %) 22.9 MCV (80 - 100 fL) 88 MCH (26 - 34 pg) 28 RDW (11.6 - 14.8 %) 17.0 Neut % (Auto) (50 - 75 %) 66 Lymph % (Auto) (25 - 40 %) 12 Whiteside % (Auto) (3 - 14 %) 10 Eos % (Auto) (0 - 4 %) 3 Baso % (Auto) (0 - 2 %) 2 Band Neutrophils % (0 - 8 %) 7 Metamyelocytes % (0 - 1 %) 0 Myelocytes (0 - 1 %) 0 Other Cell Type 0 Plt Count, EDTA (150 - 400 K/uL) 445 Anisocytosis (manual) 1+ PUBS MCHC (31 - 37 g/dL) 32 Other Body Source Gastric Occult Blood (NEGATIVE) NEGATIVE NEGATIVE Toxicology Random Vancomycin (ug/mL) 21 Assessment and Plan Problem List 1. Obstructive uropathy Plan Has landa in and doing a little better. 2. Acute kidney injury Plan Has renal issues and feeling well other than some weakness 3. Hypertension Plan Has stable bp today 4. H/O prostate cancer Plan Doing ok with catheter in.
--- NOTE | 2016-10-15 10:55 | Progress Note ---
Subjective General Brief History: The patient is a 76-year-old white male with a significant past medical history of prostate CA, hypertension, hyperlipidemia, who presented to [facility] emergency department secondary to complaints of abnormal renal function studies. [facility] ER evaluation was consistent with obstructive uropathy possibly secondary to prostate CA, and UTI. Patient is feeling well at this time. Has continued issues of some weakness and elevated WBC. Had UA that was "skin debi" Is on ceftriaxone and feels he is improving. No acute issues of CP, sob, abdomnial pain. Feels that he would benefit from another day with his weakness. Physical Exam Vital Signs / I&Os Vital Signs Date Time Temp Pulse Resp B/P Pulse O2 O2 Flow FiO2 Ox Delivery Rate 10/15 1011 99.0 89 18 112/50 97 Room Air 10/15 0935 Room Air 10/15 0933 94 10/15 0643 98.8 96 18 115/69 98 Room Air 10/15 0301 99.0 93 16 117/67 96 Room Air 10/14 2300 98.4 87 16 149/77 99 Room Air 10/14 1840 98.1 95 16 130/64 98 Room Air 10/14 1832 Room Air 10/14 1714 94 10/14 1430 98.4 90 20 125/52 97 Room Air I&O 10/15 0000 10/14 1600 10/14 0800 Intake Total 1387 1649 1559 Output Total 1450 1350 1450 Balance -63 299 109 General Appearance Alert HEENT Normal exam Lungs Clear to auscultation, Normal air movement Cardiovascular Regular rate and rhythm, Normal S1 and S2 Abdomen Soft, No tenderness Extremities No edema LAB Results Laboratory Tests 10/15 10/14 10/14 4219 0705 1915 Chemistry Plasma Sodium (136 - 145 mmol/L) 141 Plasma Potassium (3.5 - 5.1 mmol/L) 3.6 Plasma Chloride (98 - 107 mmol/L) 107 CO2 (Enzymatic) (21 - 32 mmol/L) 29 BUN (7 - 18 mg/dL) 24 Creatinine (0.6 - 1.3 mg/dL) 1.7 Est GFR ( Amer) (mL/min) 50.87 Est GFR (Non-Af Amer) (mL/min) 41.97 Glucose (70 - 110 mg/dL) 118 Plasma Calcium (8.5 - 10.1 mg/dL) 8.0 Plasma Magnesium (1.8 - 2.4 mg/dL) 1.6 Hematology WBC (4.5 - 11.5 K/uL) 17.3 RBC (4.50 - 5.90 M/uL) 2.62 Hgb (13.5 - 17.5 gm/dL) 7.4 Hct (41.0 - 53.0 %) 22.9 MCV (80 - 100 fL) 88 MCH (26 - 34 pg) 28 RDW (11.6 - 14.8 %) 17.0 Neut % (Auto) (50 - 75 %) 66 Lymph % (Auto) (25 - 40 %) 12 Refugio % (Auto) (3 - 14 %) 10 Eos % (Auto) (0 - 4 %) 3 Baso % (Auto) (0 - 2 %) 2 Band Neutrophils % (0 - 8 %) 7 Metamyelocytes % (0 - 1 %) 0 Myelocytes (0 - 1 %) 0 Other Cell Type 0 Plt Count, EDTA (150 - 400 K/uL) 445 Anisocytosis (manual) 1+ PUBS MCHC (31 - 37 g/dL) 32 Other Body Source Gastric Occult Blood (NEGATIVE) NEGATIVE NEGATIVE Toxicology Random Vancomycin (ug/mL) 21 Assessment and Plan Problem List 1. Obstructive uropathy Plan Has landa in and doing a little better. 2. Acute kidney injury Plan Has renal issues and feeling well other than some weakness 3. Hypertension Plan Has stable bp today 4. H/O prostate cancer Plan Doing ok with catheter in.
[2016-10-15 14:25] VITALS: BP 93/58
[2016-10-15 18:00] VITALS: BP 122/69
[2016-10-16] VITALS (12 sets, daily range): BP systolic 108–144; BP diastolic 49–69
--- NOTE | 2016-10-16 06:23 | NUR ---
Pt slept between care. No complaints of pain or n/v. Up to bathroom with standby assist for BM. Torres patent and draining pink, cloudy urine. Torres anchor replaced. VSS except for minor elevated temp of 99.8. Tylenol given.
--- NOTE | 2016-10-16 13:32 | Progress Note ---
Subjective General Patient is seen at the bedside, says feeling better, still with leukocytosis of 17k, was febrile last night, urine culture still pending, will c/w antibiotics, also noticed to have severe anemia with H/H 7.3/24, no signs of active bleeding, hematuria improved, transfusing 2 units of PRBC's Constitutional Fever. Denies: Chills, Sweats, Weakness, Malaise. Eyes Denies: Vision Change, Conjunctival Inflammation, Eyelid Inflammation, Redness. ENT Denies: Nasal Congestion, Mouth Pain, Mouth Swelling, Throat Pain, Throat Swelling. Respiratory Cough, Dry. Denies: SOB w/exertion, Wheezing, Hemoptysis, Pleuritic Pain, Sputum. Cardiovascular Denies: Chest Pain, Palpitations, Orthopnea, PND, Edema. Gastrointestinal Denies: Nausea, Vomiting, Abdominal Pain, Diarrhea, Constipation, Melena. Genitourinary Denies: Dysuria, Frequency, Incontinence, Hematuria, Retention. Musculoskeletal Denies: Back Pain. Neurological Denies: Weakness, Numbness, Incoordination, Change in speech, Confusion, Seizures. Physical Exam Vital Signs / I&Os Vital Signs Date Time Temp Pulse Resp B/P Pulse O2 O2 Flow FiO2 Ox Delivery Rate 10/16 1310 98.1 83 16 124/55 100 10/16 1210 96.6 90 18 120/57 99 10/16 1110 98.1 86 18 127/51 100 10/16 1055 98.2 93 20 111/56 99 10/16 1042 98.1 92 20 112/49 98 Room Air 0.0 10/16 0857 92 10/16 0635 98.4 92 18 131/54 98 Room Air 0.0 10/16 0346 99.9 89 18 108/63 99 Room Air 10/16 0052 99.7 85 18 108/57 99 Room Air 10/15 1955 Room Air 10/15 1834 100 10/15 1800 99.1 108 18 122/69 100 Room Air 10/15 1425 99.0 88 18 93/58 100 Room Air I&O 10/15 0800 10/15 1600 10/16 0000 Intake Total 1692 2135 720 Output Total 1950 1650 1800 Balance -258 485 -1080 General Appearance Alert, Oriented X3, No acute distress HEENT Atraumatic, PERRLA, Moist mucous membranes Lungs Clear to auscultation Neck Normal exam, No JVD Cardiovascular Regular rate and rhythm, Normal S1 and S2 Abdomen Normal bowel sounds, Soft, No tenderness, No guarding, No rebound Extremities No edema Neurological No lateralizing signs LAB Results Laboratory Tests 10/16 10/16 0543 0543 Chemistry Plasma Sodium (136 - 145 mmol/L) 138 Plasma Potassium (3.5 - 5.1 mmol/L) 3.5 Plasma Chloride (98 - 107 mmol/L) 107 CO2 (Enzymatic) (21 - 32 mmol/L) 27 BUN (7 - 18 mg/dL) 17 Creatinine (0.6 - 1.3 mg/dL) 1.4 Est GFR ( Amer) (mL/min) >60 Est GFR (Non-Af Amer) (mL/min) 52.51 Glucose (70 - 110 mg/dL) 115 Plasma Calcium (8.5 - 10.1 mg/dL) 7.8 Procalcitonin (0 - 0.5 ng/mL) <0.5 Hematology WBC (4.5 - 11.5 K/uL) 17.4 RBC (4.50 - 5.90 M/uL) 2.55 Hgb (13.5 - 17.5 gm/dL) 7.3 Hct (41.0 - 53.0 %) 22.2 MCV (80 - 100 fL) 87 MCH (26 - 34 pg) 29 RDW (11.6 - 14.8 %) 18.0 Neut % (Auto) (50 - 75 %) 61 Lymph % (Auto) (25 - 40 %) 9 Ramsey % (Auto) (3 - 14 %) 8 Eos % (Auto) (0 - 4 %) 4 Baso % (Auto) (0 - 2 %) 1 Band Neutrophils % (0 - 8 %) 17 Metamyelocytes % (0 - 1 %) 0 Myelocytes (0 - 1 %) 0 Other Cell Type 0 Plt Count, EDTA (150 - 400 K/uL) 446 Anisocytosis (manual) 2+ PUBS MCHC (31 - 37 g/dL) 33 Assessment and Plan Problem List 1. Acute kidney injury Plan improved Kidney function keep monitoring 2. Urinary tract infection Plan WBC stil up c/w ceftriaxone, check procalcitonin levels awaiting urine culture results, adjust as needed 3. Obstructive uropathy Plan s/p urinary catheter placement 4. Hematuria Plan improved 5. Pulmonary infiltrate Status Acute Onset Date 10/12/16 Plan on ceftriaxone, wbc still up, will add zithromax 6. Hypertension Plan BP acceptable 7. Anemia Status Acute Onset Date Unknown Plan start on ferrous sulfate 8. H/O prostate cancer Plan PSA elevtae dpossible relapse needs out patient follow up with urology E&M Codes Rounding: Inpt-High/[id number]
--- NOTE | 2016-10-16 13:41 | NUR ---
NUTRITION FOLLOW UP NOTE: Pt eating ~80-100% low sodium diet. Pt having blood transfusion today, good to see no signficant wt loss. Rev'd meds and labs. RD to continue to monitor nutrition indices, oral nutrition progress, labs and wts.
--- NOTE | 2016-10-16 14:58 | NUR ---
0800- assessment completed. see shift assessment. pt is alert, oriented. reports he is feeling much better. denies pain. See TAR for blood administration details. 1400-iv site went bad, would not flush, old IV dc'd and new 20g started in L hand.
--- NOTE | 2016-10-16 22:40 | NUR ---
NOTIFIED DR WELLER OF BLOOD PRESENT IN THE URINE. INCRAESED FLUIDS TO 100CC/HOUR.
[2016-10-17 02:33] VITALS: BP 119/57
[2016-10-17 07:09] VITALS: BP 127/62
[2016-10-17 11:13] VITALS: BP 100/56
[2016-10-17] MEDS ORDERED: FERROUS SULFAT324 M1 PO (14:45)
--- NOTE | 2016-10-17 14:53 | Provider's Discharge Care Plan ---
Problem, Goal, Plan Problem List 1. Acute kidney injury Instructions: possible obstuctive uropathy, KIdney function improved with IV hydartion and urinary catheter placement, you will be discharged on urinary catheter at home you need follow up with urology as an out patient for possible prostate cancer relapse 2. Obstructive uropathy Instructions: You will be discharged on urinary catheter 3. Urinary tract infection Instructions: Your UA was positive for Urinary infection but urine culture did not grow any bug still in view of leukocytosis with no improvement you will be discharged on levofloxacin to complete the course of 7 dyas of antibiotics 4. Pulmonary infiltrate Instructions: chest X-ray showed possible infiltrate
[2016-10-17 14:54] VITALS: BP 119/66
[2016-10-17] MEDS ORDERED: LEVOFLOXACIN500 MG PO (15:33)
[2016-10-17] MEDS ORDERED: COREG6.25 MG PO (15:45)
--- NOTE | 2016-10-17 17:14 | NUR ---
1600- discharge education provided including education on landa catheter and how to care for it. him and state understanding. given written and verbal instructions. pt to f/u with urologist and with primary care. given rx's and dc'd to home by wc with .
--- NOTE | 2016-10-20 04:04 | DISCHARGE SUMMARY ---
ADMIT DATE: 10/11/2016 DISCHARGE DATE: 10/17/2016 ADMITTING DIAGNOSES: 1. Obstructive uropathy 2. Acute kidney injury 3. Urinary tract infection DISCHARGE DIAGNOSES: 1. Obstructive uropathy 2. Acute kidney injury, resolved 3. Urinary tract infection/pneumonia 4. Hypertension BRIEF HISTORY: A 76-year-old male with a past medical history of prostate cancer status post radiation therapy, hypertension, hyperlipidemia, was sent by his PCP to [facility] Emergency Department with a complaint of abnormal kidney function study. On initial evaluation in the emergency department, he was found to have obstructive uropathy and UTI. Secondary to the above reasons, patient was admitted to the hospital for further evaluation. HOSPITAL COURSE: Patient was admitted with acute kidney injury, possibly from obstructive uropathy with bilateral hydronephrosis and urinary tract infection. Torres catheter was placed and he was recieved antibiotic treatment. Prostate specific antigen levels checked which were more than 20, possibly related to his prostate cancer. He needs to follow up with urology as an outpatient. During hospital course, the WBC count remained high. He was treated with ceftriaxone. Urine culture grew normal skin debi. Repeat urine culture did not grow anything and blood culture were negative. In view of persistent leukocytosis with elevated neutrophil count, he had a CT of abdomen and thorax done, which showed mild bilateral patchy and interstitial infiltrate suggestive of atypical pneumonia versus chronic changes,m for that he was started on zithromax. Patient was discharged in stable condition on oral levofloxacin to complete the 10 day course of antibiotics. PHYSICAL EXAMINATION: VITAL SIGNS: At the time of discharge were blood pressure 119/66, pulse rate 87 per minute, temperature 98.1, respiratory rate 20 per minute, oxygen saturations on room air 99%. GENERAL: He was alert, awake, oriented x3. He was not in acute distress. HEENT: Head, eyes, ears, nose, and throat examination was normal. LUNGS: Clear to auscultation. HEART: S1, S2 normal. ABDOMEN: Soft, nontender, with normal bowel sounds. SKIN: Intact. NEUROLOGIC: No lateralizing signs. LAB/IMAGING: His labs at the time of discharge were WBC 17.4 with neutrophil count of 18.4, hemoglobin 10, hematocrit 30.4, platelets 448. Sodium 147, potassium 4.4, chloride 110, bicarbonate 27, BUN 17, creatinine 1.4, GFR more than 60. Calcium 7.7. His iron studies were iron 45, TIBC 162, iron saturation 28. Total bilirubin 0.3, AST 24, ALT 47, alkaline phosphatase 200, total protein 8.2, albumin of 2.5. PSA 20.27. Vitamin B12 1692, folate 14.9, procalcitonin level less than 0.5. INR 1.1. Vancomycin trough 21. Gastric occult blood negative. Urine culture no growth. Blood culture no growth. Chest x-ray, possible atypical pneumonia versus chronic changes. 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 correlation is needed. CT thorax was consistent with mild bilateral patchy interstitial infiltrates suggestive of atypical pneumonia versus chronic changes. No evidence of pulmonary mass. DISCHARGE INSTRUCTIONS/MEDICATIONS: Acute kidney injury, possible obstructive uropathy, kidney function improved with IV hydration and urinary catheter placement. He is discharged on urinary catheter, needs follow up with urology as an outpatient for prostate cancer surveillance. Obstructive uropathy. Urinary tract infection vs atypical pneumonia he was discharged on levofloxacin, he needs to complete the course of antibiotics as prescribed.
== END 2016-10-17 16:30 | disposition home or self-care (01) | DRG 682 ==
LOC: ED SRH 14:25 → TRANS SRH 21:26 → ACUTE2 SRH 22:49
PROVIDERS: ADMIT Student in an Organized Health Care Education/Training Program
PROC: 30233N1 Transfusion of Nonautologous Red Blood Cells into Peripheral Vein, Percutaneous Approach (ICD-10-PCS; principal; 2016-10-16)
PROC: 30233N1 Transfusion of Nonautologous Red Blood Cells into Peripheral Vein, Percutaneous Approach (ICD-10-PCS; 2016-10-16)
DX: N17.9 Acute kidney failure, unspecified (principal); J18.9 Pneumonia, unspecified organism; N39.0 Urinary tract infection, site not specified; N13.9 Obstructive and reflux uropathy, unspecified; R31.9 Hematuria, unspecified; I10 Essential (primary) hypertension; R97.21 Rising PSA following treatment for malignant neoplasm of prostate; Z85.46 Personal history of malignant neoplasm of prostate; Z92.3 Personal history of irradiation; D64.9 Anemia, unspecified
CPT/HCPCS: 83475; 90001; 90003; 90004; 90047; 90065; 90074; 90100; 90155; 90469; 91004; 91046; 91295; 91400; 91504; 91505; 91544; 91582; 91643; 92668; 92670; 92720; 93004; 94060; 95059; 95061

== ENCOUNTER 2016-11-10 10:27 | Outpatient (CLI) | payer OTHER ==
[~2016-11-10 10:27] MED LIST: AMLODIPINE BESY10 MG PO; ASPIRIN ADULT L81 MG PO; CARVEDILOL25 MG PO; CHLORTHALIDONE25 MG PO; COREG6.25 MG PO; FERROUS SULFAT324 M1 PO; LEVOFLOXACIN500 MG PO; LIPITOR40 MG PO
--- NOTE | 2016-11-10 12:54 | DIAGNOSTIC IMAGING REPORT ---
PROCEDURE: US KIDNEY/RENAL COMPLETE INDICATION: ACUTE RENAL FAILURE TECHNIQUE: Transabdominal scans of the kidneys with calculation of resistive indices. Prevoid and postvoid bladder volumes were obtained. COMPARISON: Renal ultrasound 10/11/2016 FINDINGS: RIGHT: Kidney measures 12.2 x 5.5 x 5.5 cm. Normal cortex measures 1.2 cm. Resolved previously noted right hydronephrosis. Resistive indices measure 0.73 or less. LEFT: Measures 10.7 x 5.2 x 5.9 cm. Cortex measures 1 cm. Moderate hydronephrosis and hydroureter, unchanged. Resistive indices measure 0.77 or less. BLADDER: There is stable moderate generalized mucosal thickening of the bladder.. Prevoid bladder volume 27 ml peripheral volume 3 ml. The ureteral jets not well visualized. Mildly enlarged prostate measures 3.2 x 3.4 x 5 cm with prostatic seeds. IMPRESSION: 1. Resolved right hydronephrosis with stable moderate left hydroureteronephrosis 2. Stable moderate generalized mucosal thickening of the bladder 3. Mildly enlarged prostate with prostatic seeds 4. Findings suggest resolving chronic bladder outlet obstruction. Consider trabeculation, radiation changes or urinary bladder neoplasm. Recommend cystoscopy.
== END 2016-11-10 23:00 ==
LOC: US SRH 10:27
DX: N13.30 Unspecified hydronephrosis (principal); N32.89 Other specified disorders of bladder; N40.0 Benign prostatic hyperplasia without lower urinary tract symptoms; Z92.3 Personal history of irradiation